=== PATIENT | male | born 1960 | race Caucasian/White ===

== ENCOUNTER 2019-03-01 22:36 | Inpatient (IN) | payer MEDICARE, MEDICAID ==
[~2019-03-01] VITALS: Ht 182.9 cm; Wt 92.5 kg
[2019-03-01] MEDS ORDERED: heparin 25,000 UNIT/250ml bag 250 ML IV SCH (22:38)
[2019-03-01] MEDS ORDERED: heparin 10,000 units/1 ML INJ IV PRN (22:40)
[2019-03-01 23:02] LABS: BASOPHILS % (AUTO) 0.3 % (0-1); EOSINOPHILS % (AUTO) 0.2 % (0-6); HEMATOCRIT 29.8 % (42.0-52.0); HEMOGLOBIN 9.5 g/dl (14.0-17.9); LYMPHOCYTES # (AUTO) 1.2 X10'3 (1.1-4.8); LYMPHOCYTES % (AUTO) 10.4 % (21-51); MEAN CORPUSCULAR HEMOGLOBIN 25.5 PG (27.0-31.0); MEAN CORPUSCULAR VOLUME 79.7 FL (78-98); MONOCYTES # (AUTO) 0.8 X10'3 (0-0.9); MONOCYTES % (AUTO) 6.8 % (2-12); NEUTROPHILS # (AUTO) 9.6 X10'3 (1.8-7.7); NEUTROPHILS % (AUTO) 82.3 % (42-75); PLATELET COUNT 87 X10'3 (140-440); RED BLOOD COUNT 3.74 X10'6 (4.70-6.10); RED CELL DISTRIBUTION WIDTH 22.2 % (11.5-14.5); WHITE BLOOD COUNT 11.7 X10'3 (4.5-11.0)
[2019-03-01 23:15] LABS: ALANINE AMINOTRANSFERASE 32 U/L (12-78); ALBUMIN 2.2 G/DL (3.4-5.0); ALBUMIN/GLOBULIN RATIO 0.6 (1.1-1.5); ALKALINE PHOSPHATASE 124 IU/L (46-116); ANION GAP 9 (8-16); ASPARTATE AMINO TRANSFERASE 58 U/L (10-37); BILIRUBIN,TOTAL 0.8 MG/DL (0.1-1.0); BLOOD UREA NITROGEN 13 MG/DL (7-18); BUN/CREATININE RATIO 13.5 (5.4-32.0); CHLORIDE 108 MMOL/L (99-107); CREATININE 0.96 MG/DL (0.60-1.10); GLUCOSE 104 MG/DL (70-104); POTASSIUM 3.7 MMOL/L (3.5-5.1); SODIUM 140 MMOL/L (135-145); TOTAL CARBON DIOXIDE 23.3 MMOL/L (24-32); eGFR 80 ML/MIN
[2019-03-01 23:23] LABS: TROPONIN I 3.02 NG/ML (0.0-0.05)
[2019-03-01 23:27] LABS: PARTIAL THROMBOPLASTIN TIME 45 SECONDS (22-32)
[2019-03-01] MEDS ORDERED: magnesium 4gm in 100ml NS 100 ML IV ONE (23:35)
[2019-03-01] MEDS ORDERED: magnesium 2GM in 50ml NS 50 ML IV ONE (23:35)
--- NOTE | 2019-03-02 00:14 | NUR ---
PTT 45: therapeutic, No change.
[2019-03-02] MEDS ORDERED: thiamine inj. 100 MG in normal saline 100ml IV soln 99 ML IV ONE (00:55)
[2019-03-02] MEDS ORDERED: magnesium 2GM in 50ml NS 50 ML IV ONE (00:55)
[2019-03-02] MEDS ORDERED: thiamine 100mg/ml 2ml inj. IV ONE (01:10)
[2019-03-02] MEDS ORDERED: acetaminophen 325mg tablet PO PRN (02:10)
[2019-03-02] MEDS ORDERED: heparin 10,000 units/1 ML INJ IV PRN (02:10)
[2019-03-02] MEDS ORDERED: heparin 10,000 units/1 ML INJ IV ONE (02:10)
[2019-03-02] MEDS ORDERED: dextrose ORAL solution 15 GM/59 ML bottle PO PRN ×2 (02:10)
[2019-03-02] MEDS ORDERED: mag hydrox/Alum hydrox/simeth 30ml oral suspension PO PRN (02:10)
[2019-03-02] MEDS ORDERED: magnesium 4gm in 100ml NS 100 ML IV PRN (02:10)
[2019-03-02] MEDS ORDERED: magnesium 2GM in 50ml NS 50 ML IV PRN (02:10)
[2019-03-02] MEDS: heparin 25,000 UNIT/250ml bag 250 ML IV SCH ×3 (02:10→22:34)
[2019-03-02] MEDS ORDERED: glucagon, human recombinant 1mg kit SUBCUT PRN (02:10)
[2019-03-02] MEDS ORDERED: MESSAGE TO PHARMACY PO ONE (02:10)
[2019-03-02] MEDS ORDERED: dextrose 50%-water 50ml dispensing syringe IV PRN ×2 (02:10)
[2019-03-02] MEDS ORDERED: docusate sod 100mg capsule PO PRN (02:10)
[2019-03-02] MEDS ORDERED: potassium Cl 20 mEq SR tablet PO PRN ×2 (02:10)
[2019-03-02] MEDS ORDERED: potassium CL 10mEq/100ml bag 100 ML IV PRN ×2 (02:10)
[2019-03-02] MEDS ORDERED: ondansetron/PF 4mg/2ml inj IV PRN (02:10)
--- NOTE | 2019-03-02 02:28 | NUR ---
PT CHART WITH DR CAPELLAN
[2019-03-02] MEDS ORDERED: haloperidol 5mg tablet PO PRN (02:40)
[2019-03-02] MEDS ORDERED: haloperidol lactate 5mg/ml inj IM PRN (02:40)
[2019-03-02] MEDS ORDERED: LORazepam 2 mg/ml vial IV PRN (02:40)
[2019-03-02] MEDS ORDERED: thiamine inj. 100 MG in normal saline 100ml IV soln 100 ML IV ONE (02:40)
[2019-03-02 02:46] LABS: HEMOGLOBIN A1C 8.7 % (4.5-6.2)
--- NOTE | 2019-03-02 04:05 | NUR ---
Received report from ER Nurse Claudia. Pt brought to room 313 via gurney. Patient was awake and oriented to person and place. Pt adjusting to room well. Giving a bed bath due to very poor hygiene. Pt tolerating well.
[2019-03-02 04:12] VITALS: BP 111/71
--- NOTE | 2019-03-02 04:21 | NUR ---
PAGER ID: [phone] MESSAGE: [phone] Jenny Flowers Pt is alert and remarked that he noticed his speech was slurred and stated "I don't know why my speech is like this it is not normal for me." Kaity [phone]
[2019-03-02] MEDS ORDERED: regadenoson 0.4mg/5ml syringe IV PRN (04:45)
[2019-03-02] MEDS ORDERED: metoprolol tartrate 1mg/ml inj IV PRN (04:45)
[2019-03-02] MEDS ORDERED: aminophylline 250mg/10ml inj. IV PRN (04:45)
[2019-03-02] MEDS ORDERED: nitroGLYCERIN 0.4mg SUBLingual tab SL PRN (04:45)
[2019-03-02 06:00] VITALS: BP 129/84
--- NOTE | 2019-03-02 06:12 | NUR ---
Problems reprioritized. Patient report given, questions answered & plan of care reviewed with Tuan GOINS .
--- NOTE | 2019-03-02 06:15 | NUR ---
Patient in room MED 313. I have received report from BUSTER PLAZA and had the opportunity to ask questions and assume patient care.
[2019-03-02 06:18] LABS: BASOPHILS % (AUTO) 0.2 % (0-1); EOSINOPHILS % (AUTO) 0.6 % (0-6); HEMATOCRIT 29.4 % (42.0-52.0); HEMOGLOBIN 9.4 g/dl (14.0-17.9); LYMPHOCYTES # (AUTO) 1.1 X10'3 (1.1-4.8); MEAN CORPUSCULAR HEMOGLOBIN 25.6 PG (27.0-31.0); MEAN CORPUSCULAR HGB CONC 32.1 g/dL (33.0-36.5); MEAN CORPUSCULAR VOLUME 79.8 FL (78-98); MEAN PLATELET VOLUME 8.3 FL (7.4-10.4); MONOCYTES # (AUTO) 0.6 X10'3 (0-0.9); MONOCYTES % (AUTO) 7.8 % (2-12); NEUTROPHILS # (AUTO) 6.3 X10'3 (1.8-7.7); NEUTROPHILS % (AUTO) 77.4 % (42-75); PLATELET COUNT 80 X10'3 (140-440); RED BLOOD COUNT 3.69 X10'6 (4.70-6.10); RED CELL DISTRIBUTION WIDTH 21.5 % (11.5-14.5); WHITE BLOOD COUNT 8.1 X10'3 (4.5-11.0)
[2019-03-02 06:27] LABS: MAGNESIUM 2.3 MG/DL (1.5-2.4)
--- NOTE | 2019-03-02 06:34 | NUR ---
PAGER ID: [phone] MESSAGE: RM 313 ED WORTHY 6 HR TROP 2.43 THANK YOU BUSTER FARRELL [id number]
[2019-03-02 07:23] LABS: ANISOCYTOSIS 3+; HYPOCHROMASIA 1+; LARGE PLATELETS FEW; MICROCYTOSIS 1+; PLATELET ESTIMATE DECREASED; POLYCHROMASIA 1+; SCHISTOCYTES FEW; TEAR DROP CELLS FEW
[2019-03-02] MEDS ORDERED: MVI, adult No.4 with vit. K 10 ML in dextrose 5% water 500ml 500 ML IV SCH ×2 (08:00)
[2019-03-02] MEDS: K and/or MAG REPLACEMENT MC SCH (08:00)
[2019-03-02] MEDS: atorvastatin 10mg tablet PO SCH (08:10)
--- NOTE | 2019-03-02 08:34 | NUR ---
PAGER ID: [phone] MESSAGE: RM 313 RANGEL WORTHY PT CONTINUES TO COMPLAIN OF SLURRED SPEACH. CT SHOWED OLD INFARCTS. WOULD YOU RECOMMEND MRI? THANK YOU. BUSTER FARRELL EXT. [id number]
[2019-03-02] MEDS: aspirin 81mg tab.chew PO SCH (08:43)
--- NOTE | 2019-03-02 08:45 | NUR ---
DR. NUNO AT BEDSIDE. STAT MRI HEAD ORDERED. INFORMED DR. NUNO THAT ÁLVARO CHAWLA NP SAW PATIENT AND D/C'D GAMAL
[2019-03-02 11:00] VITALS: BP 120/84
--- NOTE | 2019-03-02 11:19 | NUR ---
INCREASED FALL INTERVENTIONS: SEIZURE PADS UPPER RAILS X2, BED ALARM ON/AUDIBLE, ROOM CLOSE TO NURSE STATION, NON-SKID SOCKS ON. 2 PERSON ASSIST FOR TRANSFER/AMBULATION
--- NOTE | 2019-03-02 11:45 | NUR ---
called this morning for pt c/o slurred speech since admission. Pt mumbles and very difficult to understand at times, edentulous. slow to arouse and interact. Not oriented to place, however, knows he is in [place]. Pt states he "does not talk this way". MRI negative for acute infarct or hemorrhage, apparently sustained a fall at MRI, hitting left side of head per RN. Pt c/o mild tenderness left face region. No bruising, no hematomas felt or visualized. Spoke briefly with DR Ash. Will hold off on tele-neuro exam for now. Asked nursing to increase neuro assessment.
--- NOTE | 2019-03-02 14:28 | NUR ---
DM consult: Pt with A1c 8.7. Pt admit with toxic encephalopathy secondary to alcohol intoxication and NSTEMI. Per physical assessment pt A/O x 2; DM ed not appropriate at this time. Per H&P pt found to be confused by bystanders and pt with hypoglycemia with BG levels in the 40s. Pt with hx amphetamine and Etoh abuse, pt receiving banana bag. Pt currently NPO. LBM 03/01. Conner 13. No edema or wounds. Will continue to follow. Recommendations: 1) Advance to heart healthy CHO controlled diet as medically indicated 2) DM ed prior to d/c once appropriate 3) Continue banana bag given hx Etoh abuse 4) Wt per rx Addendum: 03/02/19 at [address] Amended: Links added.
[2019-03-02 15:00] VITALS: BP 140/91
[2019-03-02] MEDS ORDERED: METF-438 PO (17:41)
[2019-03-02] MEDS ORDERED: POTA-82 PO (17:42)
[2019-03-02] MEDS ORDERED: BACL10TA2 PO (17:44)
[2019-03-02] MEDS ORDERED: METO25TA6 PO (17:45)
[2019-03-02] MEDS ORDERED: HYDR25TA4 PO (17:45)
--- NOTE | 2019-03-02 17:48 | NUR ---
PAGER ID: [phone] MESSAGE: [phone] RANGEL WORTHY MEDICATION RECONCILE DONE. BUSTER FARRELL EXT. [id number]
--- NOTE | 2019-03-02 17:56 | NUR ---
[place] documentation: I have reviewed and agree with interventions, assessments performed and documented by Thalia GOINS. [place] Medication Administration: For this medication-pass time frame, all medication were reviewed, dispensed, administered and documented per hospital policy by Thalia GOINS.
[2019-03-02 18:00] VITALS: BP 126/82
--- NOTE | 2019-03-02 18:00 | NUR ---
Patient in room PCU 3025. I have received report from Jay GOINS and had the opportunity to ask questions and assume patient care.
--- NOTE | 2019-03-02 18:14 | NUR ---
Problems reprioritized. Patient report given, questions answered & plan of care reviewed with Jan GOINS.
[2019-03-02] MEDS ORDERED: non-formulary drug (Metformin HCl 1 TAB) PO SCH (20:00)
[2019-03-02] MEDS: metFORMIN 500mg tablet PO SCH (20:03)
[2019-03-02] MEDS: insulin Lispro (HumaLOG) vial - multi-dose SQ SCH (20:07)
[2019-03-02] MEDS: baclofen 10mg tablet PO SCH (20:40)
[2019-03-02] MEDS ORDERED: WATER IV SCH (21:00)
[2019-03-02] MEDS ORDERED: FOLIC ACID IV SCH (21:00)
[2019-03-02] MEDS ORDERED: DEXTROSE 5% IV SCH (21:00)
[2019-03-02] MEDS ORDERED: THIAMINE IV SCH (21:00)
--- NOTE | 2019-03-02 21:00 | NUR ---
Problems reprioritized. Patient report given, questions answered & plan of care reviewed with Juana GOINS on PCU transfer.
--- NOTE | 2019-03-02 21:30 | NUR ---
patient transfered to PCU, report given earlier to Juana GOINS, patient had no issues ofr complaints, medications and patient transfered without incident
[2019-03-02 22:00] VITALS: BP 117/74
[2019-03-02] MEDS: insulin glargine (Lantus) pen - multi-dose SQ SCH (22:37)
--- NOTE | 2019-03-02 23:00 | NUR ---
eating an hs snack of yogurt. tolerating well.
--- NOTE | 2019-03-03 01:00 | NUR ---
resting eyes closed on left side no s&s of distress at this time.
[2019-03-03 03:00] VITALS: BP 111/80
--- NOTE | 2019-03-03 03:00 | NUR ---
resting eyes closed without changes did awaken for vitals and asked for water clearly.
--- NOTE | 2019-03-03 05:36 | NUR ---
lab in drawing cardiac ptt. was asleep without s&s of distress however did spill his water pitcher in the bed.
--- NOTE | 2019-03-03 05:53 | NUR ---
pt taking sips of water. states he's not currently using and in a rut. discussed options with him while changing his bed liens.
[2019-03-03 06:00] VITALS: BP 125/93
--- NOTE | 2019-03-03 06:00 | NUR ---
Patient in room PCU 3025. I have received report from Neva GOINS and had the opportunity to ask questions and assume patient care.
[2019-03-03 06:12] LABS: BASOPHILS % (AUTO) 0.4 % (0-1); EOSINOPHILS # (AUTO) 0.1 X10'3 (0-0.9); EOSINOPHILS % (AUTO) 1.6 % (0-6); HEMATOCRIT 28.6 % (42.0-52.0); HEMOGLOBIN 9.3 g/dl (14.0-17.9); LYMPHOCYTES # (AUTO) 1.2 X10'3 (1.1-4.8); LYMPHOCYTES % (AUTO) 18.3 % (21-51); MEAN CORPUSCULAR HGB CONC 32.5 g/dL (33.0-36.5); MEAN CORPUSCULAR VOLUME 79.9 FL (78-98); MONOCYTES # (AUTO) 0.5 X10'3 (0-0.9); MONOCYTES % (AUTO) 8.2 % (2-12); NEUTROPHILS # (AUTO) 4.7 X10'3 (1.8-7.7); NEUTROPHILS % (AUTO) 71.5 % (42-75); PLATELET COUNT 85 X10'3 (140-440); RED BLOOD COUNT 3.58 X10'6 (4.70-6.10); RED CELL DISTRIBUTION WIDTH 21.5 % (11.5-14.5); WHITE BLOOD COUNT 6.5 X10'3 (4.5-11.0)
--- NOTE | 2019-03-03 06:24 | NUR ---
Problems reprioritized. Patient report given, questions answered & plan of care reviewed with Greg Florentino. Addendum: 03/03/19 at 0625 by Neva Islas RN Amended: Links added.
[2019-03-03 06:29] LABS: ALANINE AMINOTRANSFERASE 28 U/L (12-78); ALBUMIN 2.1 G/DL (3.4-5.0); ALBUMIN/GLOBULIN RATIO 0.6 (1.1-1.5); ALKALINE PHOSPHATASE 116 IU/L (46-116); ANION GAP 8 (8-16); ASPARTATE AMINO TRANSFERASE 25 U/L (10-37); BILIRUBIN,TOTAL 0.7 MG/DL (0.1-1.0); BLOOD UREA NITROGEN 15 MG/DL (7-18); BUN/CREATININE RATIO 15.6 (5.4-32.0); CALCIUM 8.3 MG/DL (8.5-10.1); CHLORIDE 107 MMOL/L (99-107); CHOL/HDL RATIO 2.4 (0.00-4.99); CHOLESTEROL 79 MG/DL (0-200); CREATININE 0.96 MG/DL (0.60-1.10); GLUCOSE 146 MG/DL (70-104); HDL CHOLESTEROL 33 MG/DL (35-60); LDL CHOLESTEROL 38 MG/DL (50-100); LIPASE < 50 U/L (73-393); MAGNESIUM 1.4 MG/DL (1.5-2.4); PHOSPHORUS 2.7 MG/DL (2.3-4.5); SODIUM 140 MMOL/L (135-145); TOTAL CARBON DIOXIDE 25.5 MMOL/L (24-32); TOTAL PROTEIN 5.7 G/DL (6.4-8.2); TRIGLYCERIDES 53 MG/DL (20-135); eGFR 80 ML/MIN
[2019-03-03] MEDS: atorvastatin 10mg tablet PO SCH (07:18)
[2019-03-03] MEDS: aspirin 81mg tab.chew PO SCH (07:18)
[2019-03-03] MEDS: multivitamins, therapeutics tablet PO SCH (07:18)
[2019-03-03] MEDS: potassium Cl 20 mEq SR tablet PO SCH (07:18)
[2019-03-03] MEDS: folic acid 1mg tablet PO SCH (07:18)
[2019-03-03] MEDS: baclofen 10mg tablet PO SCH ×3 (07:18→21:20)
[2019-03-03] MEDS: thiamine 100mg tablet PO SCH (07:18)
[2019-03-03] MEDS: metFORMIN 500mg tablet PO SCH ×2 (07:38→20:00)
[2019-03-03] MEDS: K and/or MAG REPLACEMENT MC SCH (07:38)
[2019-03-03] MEDS ORDERED: non-formulary drug (Potassium Chloride 1 TAB) PO SCH (08:00)
[2019-03-03 08:01] LABS: ANISOCYTOSIS 3+; HYPOCHROMASIA 1+; MICROCYTOSIS 1+; PLATELET ESTIMATE DECREASED; POIKILOCYTOSIS FEW
[2019-03-03] MEDS: insulin Lispro (HumaLOG) vial - multi-dose SQ SCH ×3 (08:54→19:26)
[2019-03-03] MEDS: metoprolol succinate 25mg (24-HOUR) SR. Tablet PO SCH (09:40)
[2019-03-03 12:00] VITALS: BP 115/75
[2019-03-03] MEDS: magnesium Cl slow-release 64mg tablet PO PRN ×2 (12:37→21:27)
[2019-03-03 16:00] VITALS: BP 113/75
[2019-03-03 18:00] VITALS: BP 110/73
--- NOTE | 2019-03-03 18:30 | NUR ---
Problems reprioritized. Patient report given, questions answered & plan of care reviewed with Ita GOINS.
--- NOTE | 2019-03-03 18:31 | NUR ---
Patient in room U 3025. I have received report from BUSTER CHAMORRO and had the opportunity to ask questions and assume patient care. Addendum: 03/03/19 at 1831 by Ita Schuster RN Amended: Links added.
[2019-03-03] MEDS: insulin glargine (Lantus) pen - multi-dose SQ SCH (21:40)
[2019-03-03 22:00] VITALS: BP 112/73
--- NOTE | 2019-03-03 22:18 | NUR ---
provided snack (dm) after imsulin was given
[2019-03-04] VITALS (7 sets, daily range): BP systolic 93–125; BP diastolic 69–86
[2019-03-04] MEDS ORDERED: LORazepam 2 mg/ml vial IV PRN (02:40)
[2019-03-04] MEDS ORDERED: LORazepam 1 MG tablet PO PRN (02:40)
--- NOTE | 2019-03-04 06:11 | NUR ---
Problems reprioritized. Patient report given, questions answered & plan of care reviewed with BUSTER Zambrano. Addendum: 03/04/19 at 0611 by Ita Schuster RN Amended: Links added.
[2019-03-04 06:42] LABS: ALANINE AMINOTRANSFERASE 25 U/L (12-78); ALBUMIN 2.1 G/DL (3.4-5.0); ALBUMIN/GLOBULIN RATIO 0.6 (1.1-1.5); ALKALINE PHOSPHATASE 113 IU/L (46-116); ANION GAP 7 (8-16); ASPARTATE AMINO TRANSFERASE 19 U/L (10-37); BILIRUBIN,TOTAL 0.9 MG/DL (0.1-1.0); BLOOD UREA NITROGEN 16 MG/DL (7-18); BUN/CREATININE RATIO 20.3 (5.4-32.0); CALCIUM 8.7 MG/DL (8.5-10.1); CHLORIDE 106 MMOL/L (99-107); CREATININE 0.79 MG/DL (0.60-1.10); GLUCOSE 136 MG/DL (70-104); LIPASE < 50 U/L (73-393); MAGNESIUM 1.3 MG/DL (1.5-2.4); PHOSPHORUS 2.6 MG/DL (2.3-4.5); POTASSIUM 4.1 MMOL/L (3.5-5.1); SODIUM 138 MMOL/L (135-145); TOTAL CARBON DIOXIDE 24.8 MMOL/L (24-32); TOTAL PROTEIN 5.8 G/DL (6.4-8.2); eGFR > 90 ML/MIN
[2019-03-04 06:48] LABS: BASOPHILS % (AUTO) 0.5 % (0-1); EOSINOPHILS # (AUTO) 0.1 X10'3 (0-0.9); EOSINOPHILS % (AUTO) 1.9 % (0-6); HEMATOCRIT 29.5 % (42.0-52.0); HEMOGLOBIN 9.5 g/dl (14.0-17.9); LYMPHOCYTES # (AUTO) 1.1 X10'3 (1.1-4.8); LYMPHOCYTES % (AUTO) 19.5 % (21-51); MEAN CORPUSCULAR HEMOGLOBIN 25.4 PG (27.0-31.0); MEAN CORPUSCULAR HGB CONC 32.2 g/dL (33.0-36.5); MEAN CORPUSCULAR VOLUME 78.9 FL (78-98); MEAN PLATELET VOLUME 8.5 FL (7.4-10.4); MONOCYTES # (AUTO) 0.5 X10'3 (0-0.9); MONOCYTES % (AUTO) 9.5 % (2-12); NEUTROPHILS # (AUTO) 3.9 X10'3 (1.8-7.7); NEUTROPHILS % (AUTO) 68.6 % (42-75); PLATELET COUNT 86 X10'3 (140-440); RED BLOOD COUNT 3.74 X10'6 (4.70-6.10); RED CELL DISTRIBUTION WIDTH 21.1 % (11.5-14.5); WHITE BLOOD COUNT 5.6 X10'3 (4.5-11.0)
--- NOTE | 2019-03-04 06:51 | NUR ---
Patient in room PCU 3013. I have received report from Marycarmen GOINS and had the opportunity to ask questions and assume patient care.
[2019-03-04] MEDS: K and/or MAG REPLACEMENT MC SCH (07:36)
[2019-03-04] MEDS: metFORMIN 500mg tablet PO SCH ×2 (07:40→20:56)
[2019-03-04] MEDS: magnesium Cl slow-release 64mg tablet PO PRN ×2 (07:40→19:08)
[2019-03-04] MEDS: potassium Cl 20 mEq SR tablet PO SCH (07:40)
[2019-03-04] MEDS: thiamine 100mg tablet PO SCH (07:40)
[2019-03-04] MEDS: multivitamins, therapeutics tablet PO SCH (07:40)
[2019-03-04] MEDS: baclofen 10mg tablet PO SCH ×3 (07:40→20:55)
[2019-03-04] MEDS: aspirin 81mg tab.chew PO SCH (07:40)
[2019-03-04] MEDS: metoprolol succinate 25mg (24-HOUR) SR. Tablet PO SCH (07:40)
[2019-03-04] MEDS: atorvastatin 10mg tablet PO SCH (07:40)
[2019-03-04] MEDS: folic acid 1mg tablet PO SCH (07:40)
[2019-03-04] MEDS: enoxaparin 40mg/0.4ml syringe SUBCUT SCH (07:41)
[2019-03-04 07:45] LABS: HYPOCHROMASIA 1+; PLATELET ESTIMATE DECREASED
[2019-03-04 07:46] LABS: ANISOCYTOSIS 3+; MICROCYTOSIS 1+
[2019-03-04] MEDS: insulin Lispro (HumaLOG) vial - multi-dose SQ SCH ×2 (10:22→13:27)
[2019-03-04] MEDS ORDERED: lactulose 20gm/30ml cup PO ONE (18:20)
--- NOTE | 2019-03-04 18:27 | NUR ---
Problems reprioritized. Patient report given, questions answered & plan of care reviewed with Niko GOINS. Patient stable at transfer of care.
--- NOTE | 2019-03-04 18:50 | NUR ---
Patient in room PCU 0687Q. I have received report from BUSTER Zambrano and had the opportunity to ask questions and assume patient care. Patient asleep for bedside report. Will continue to monitor clsoely
--- NOTE | 2019-03-04 18:51 | NUR ---
Patient had critical low blood glucose of 47 at 1700 hour; 1800 hour blood glucose of 115. Patient only ate meat portion of meal. Will not be covering for evening meal due to critical low at 1700.
[2019-03-04] MEDS: lactulose 20gm/30ml cup PO SCH (20:00)
[2019-03-04] MEDS: insulin glargine (Lantus) pen - multi-dose SQ SCH (21:29)
[2019-03-05] MEDS: lactulose 20gm/30ml cup PO SCH ×2 (02:00→08:00)
[2019-03-05 03:00] VITALS: BP 103/58
[2019-03-05 06:17] LABS: BASOPHILS % (AUTO) 0.4 % (0-1); EOSINOPHILS # (AUTO) 0.1 X10'3 (0-0.9); EOSINOPHILS % (AUTO) 1.8 % (0-6); HEMATOCRIT 30.1 % (42.0-52.0); HEMOGLOBIN 9.6 g/dl (14.0-17.9); LYMPHOCYTES # (AUTO) 1.1 X10'3 (1.1-4.8); LYMPHOCYTES % (AUTO) 22.4 % (21-51); MEAN CORPUSCULAR HEMOGLOBIN 25.6 PG (27.0-31.0); MEAN PLATELET VOLUME 8.5 FL (7.4-10.4); MONOCYTES # (AUTO) 0.6 X10'3 (0-0.9); MONOCYTES % (AUTO) 11.1 % (2-12); NEUTROPHILS # (AUTO) 3.2 X10'3 (1.8-7.7); NEUTROPHILS % (AUTO) 64.3 % (42-75); PLATELET COUNT 77 X10'3 (140-440); RED BLOOD COUNT 3.77 X10'6 (4.70-6.10); RED CELL DISTRIBUTION WIDTH 21.1 % (11.5-14.5)
[2019-03-05 06:20] LABS: GLUCOSE 189 MG/DL (70-104); SODIUM 141 MMOL/L (135-145)
[2019-03-05 06:21] LABS: ALANINE AMINOTRANSFERASE 22 U/L (12-78); ALBUMIN 2.1 G/DL (3.4-5.0); ALBUMIN/GLOBULIN RATIO 0.6 (1.1-1.5); ALKALINE PHOSPHATASE 135 IU/L (46-116); ANION GAP 10 (8-16); ASPARTATE AMINO TRANSFERASE 21 U/L (10-37); BILIRUBIN,TOTAL 0.9 MG/DL (0.1-1.0); BLOOD UREA NITROGEN 14 MG/DL (7-18); BUN/CREATININE RATIO 16.9 (5.4-32.0); CALCIUM 8.3 MG/DL (8.5-10.1); CHLORIDE 107 MMOL/L (99-107); CREATININE 0.83 MG/DL (0.60-1.10); LIPASE < 50 U/L (73-393); MAGNESIUM 1.2 MG/DL (1.5-2.4); PHOSPHORUS 2.9 MG/DL (2.3-4.5); POTASSIUM 4.2 MMOL/L (3.5-5.1); TOTAL CARBON DIOXIDE 23.6 MMOL/L (24-32); TOTAL PROTEIN 5.9 G/DL (6.4-8.2); eGFR > 90 ML/MIN
--- NOTE | 2019-03-05 06:39 | NUR ---
Problems reprioritized. Patient report given, questions answered & plan of care reviewed with BUSTER Zambrano.
[2019-03-05 07:00] VITALS: BP 134/87
[2019-03-05] MEDS: K and/or MAG REPLACEMENT MC SCH (08:00)
[2019-03-05] MEDS: enoxaparin 40mg/0.4ml syringe SUBCUT SCH (08:00)
[2019-03-05] MEDS: aspirin 81mg tab.chew PO SCH (09:05)
[2019-03-05] MEDS: thiamine 100mg tablet PO SCH (09:05)
[2019-03-05] MEDS: folic acid 1mg tablet PO SCH (09:05)
[2019-03-05] MEDS: atorvastatin 10mg tablet PO SCH (09:05)
[2019-03-05] MEDS: baclofen 10mg tablet PO SCH ×2 (09:05→13:56)
[2019-03-05] MEDS: multivitamins, therapeutics tablet PO SCH (09:05)
[2019-03-05] MEDS: potassium Cl 20 mEq SR tablet PO SCH (09:05)
[2019-03-05] MEDS: metoprolol succinate 25mg (24-HOUR) SR. Tablet PO SCH (09:05)
[2019-03-05] MEDS: metFORMIN 500mg tablet PO SCH (09:05)
[2019-03-05] MEDS: insulin Lispro (HumaLOG) vial - multi-dose SQ SCH ×2 (09:07→14:00)
[2019-03-05 11:00] VITALS: BP 140/89
[2019-03-05] MEDS ORDERED: ATOR10TA PO (12:15)
[2019-03-05] MEDS ORDERED: METO-395 PO (12:15)
[2019-03-05] MEDS ORDERED: NITR0.4T51 SL (12:15)
[2019-03-05] MEDS ORDERED: ASPI-1265 PO (12:15)
[2019-03-05] MEDS ORDERED: LACT10SO7 PO (12:15)
--- NOTE | 2019-03-05 14:10 | NUR ---
Patient discharged home, medications delivered by [facility], PIV removed with cannula intact, patient reviewed discharged packet and educations before signing, patient belongings sent with patient. Patient left via [facility] transport.
[2019-03-06] MEDS ORDERED: LORazepam 1 MG tablet PO PRN (02:40)
[2019-03-06] MEDS ORDERED: LORazepam 2 mg/ml vial IV PRN (02:40)
== END 2019-03-05 14:12 | disposition home or self-care (01) | DRG 280 ==
LOC: ER 22:37 → MED 3N 03-02 02:53 → CMPBEDREQ 03-02 02:54 → PCU 3S 03-02 21:50
PROVIDERS: ADMIT Family Medicine; ATTEND Family Medicine
DX: I21.4 Non-ST elevation (NSTEMI) myocardial infarction (principal); G92 Toxic encephalopathy; E11.641 Type 2 diabetes mellitus with hypoglycemia with coma; I42.7 Cardiomyopathy due to drug and external agent; E83.42 Hypomagnesemia; F15.10 Other stimulant abuse, uncomplicated; F12.10 Cannabis abuse, uncomplicated; F10.229 Alcohol dependence with intoxication, unspecified; D64.9 Anemia, unspecified; K70.9 Alcoholic liver disease, unspecified; E11.65 Type 2 diabetes mellitus with hyperglycemia; D69.59 Other secondary thrombocytopenia; I11.0 Hypertensive heart disease with heart failure; I50.9 Heart failure, unspecified; J44.9 Chronic obstructive pulmonary disease, unspecified; F29 Unspecified psychosis not due to a substance or known physiological condition; F41.9 Anxiety disorder, unspecified; K21.9 Gastro-esophageal reflux disease without esophagitis; Z59.0 Homelessness; Z79.4 Long term (current) use of insulin; Z91.14 Patient's other noncompliance with medication regimen; Z71.41 Alcohol abuse counseling and surveillance of alcoholic; Z71.51 Drug abuse counseling and surveillance of drug abuser; Y92.89 Other specified places as the place of occurrence of the external cause; Z71.6 Tobacco abuse counseling
CPT/HCPCS: 36415; 70450; 70544; 70551; 80053; 80061; 82140; 82948; 83036; 83690; 83735; 83880; 84100; 84484; 85025; 85610; 85730; 87081; 93005; 93306; 96365; 96375; 97116; 97161; 97530; 99291; G0378; J1644; J1650; J1815; J3411; J3475; J3490; J7060